=== PATIENT | male | born 1960 | race African-American/Black ===

== ENCOUNTER 2024-11-26 09:15 | Outpatient (REF) | payer MEDICARE, MEDICAID, SELFPAY ==
--- OUTSIDE RECORDS SUMMARY | 2024-11-26 12:25 | XMS_ITS | Continuity of Care Document ---
Author Organization [facility] Address [address] [place] [address] Phone Care Team Providers Care Retail Client Solutions Analyst Name Role Phone Geoff Amaro MD Unavailable Unavailable Procedures Procedure Date INITIAL HOSPITAL CARE HOSPITAL DISCHARGE DAY CRITICAL CARE FIRST HOUR ELECTROCARDIOGRAM REPORT SUBSEQUENT HOSPITAL CARE SUBSEQUENT HOSPITAL CARE SUBSEQUENT HOSPITAL CARE SUBSEQUENT HOSPITAL CARE HOSPITAL DISCHARGE DAY INITIAL HOSPITAL CARE EMERGENCY DEPT VISIT MED SERV 10PM-8AM 24 HR FAC SUBSEQUENT HOSPITAL CARE SUBSEQUENT HOSPITAL CARE SUBSEQUENT HOSPITAL CARE SUBSEQUENT HOSPITAL CARE SUBSEQUENT HOSPITAL CARE SUBSEQUENT HOSPITAL CARE HOSPITAL DISCHARGE DAY INITIAL HOSPITAL CARE EMERGENCY DEPT VISIT ELECTROCARDIOGRAM REPORT INITIAL HOSPITAL CARE SUBSEQUENT HOSPITAL CARE SUBSEQUENT HOSPITAL CARE SUBSEQUENT HOSPITAL CARE HOSPITAL DISCHARGE DAY CRITICAL CARE FIRST HOUR EMERGENCY DEPT VISIT ELECTROCARDIOGRAM REPORT EMERGENCY DEPT VISIT ELECTROCARDIOGRAM REPORT MED SERV 10PM-8AM 24 HR FAC INITIAL HOSPITAL CARE INPATIENT CONSULTATION SUBSEQUENT HOSPITAL CARE INITIAL HOSPITAL CARE EMERGENCY DEPT VISIT ELECTROCARDIOGRAM REPORT MED SERV 10PM-8AM 24 HR FAC INITIAL HOSPITAL CARE EMERGENCY DEPT VISIT MED SERV 10PM-8AM 24 HR FAC INPATIENT CONSULTATION INPATIENT CONSULTATION (shared) 016 SUBSEQUENT HOSPITAL CARE DIAGNOSTIC COLONOSCOPY UPPR GI ENDOSCOPY DIAGNOSIS Advance Directives Directive Yes / No Effective Date File Name No Information Encounters Encounter Description Practice Location Reason(s) For Visit Diagnoses Date Provider Providers Copied on Encounter INITIAL [facility], [address], [place], [place], [id number], [place] tel:[phone] [facility] In Patient No Information Prem Geoff. [address], [place], [place], [id number], [place]. tel:[phone] CRITICAL CARE FIRST HOUR [facility], [address], [place], [place], [id number], [place] tel:[phone] [facility] ER No Information Erika Winchester. [address], [place], [place], [id number], [place]. tel:[phone] Referring Provider: Ranulfo James, [address], [place], [address]. tel:[phone] SUBSEQUENT [facility], [address], [place], [place], [id number], [place] tel:[phone] [facility] In Patient No Information Huber Duran. [address], [place], [place], [id number], [place]. tel:[phone] SUBSEQUENT [facility] CARE [facility], [address], [place], [place], [id number], [place] tel:[phone] [facility] In Patient No Information Ike Sims. [address], [place], [id number], [place]. tel:[phone] INITIAL HOSPITAL CARE [facility], [address], [place], [place], [id number], [place] tel:[phone] [facility] In Patient No Information Deedee Mcconnell. [address], [place], [place], [id number], [place]. tel:[phone] EMERGENCY DEPT VISIT [facility], [address], [place], [place], [id number], [place] tel:[phone] [facility] ER No Information Erika Winchester. [address], [place], [place], [id number], [place]. tel:[phone] SUBSEQUENT HOSPITAL CARE [facility], [address], [place], [place], [id number], [place] tel:[phone] [facility] In Patient No Information Ike Sims. [address], [place], [place], [id number], [place]. tel:[phone] SUBSEQUENT HOSPITAL CARE [facility], [address], [place], [id number], [place] tel:[phone] [facility] In Patient No Information London Love. [address], [place], [place], [id number], [place]. tel:[phone] INITIAL HOSPITAL CARE [facility], [address], [place], [id number], [place] tel:[phone] [facility] In Patient No Information Deedee Mcconnell. [address], [place], [place], [id number], [place]. tel:[phone] EMERGENCY DEPT VISIT [facility], [address], [place], [id number], [place] tel:[phone] [facility] ER No Information Colby Logan. [address], [place], [place], [address], [place]. tel:[phone] Referring Provider: Desmond Bowman, [address], [place], [address]. tel:[phone] CRITICAL CARE FIRST HOUR [facility], [address], [place], [id number], [place] tel:[phone] [facility] ER No Information Erikadonna MayesRanulfo. [address], [place], [place], [id number], [place]. tel:[phone] INITIAL HOSPITAL CARE [facility], [address], [place], [id number], [place] tel:[phone] [facility] In Patient No Information Deedee Mcconnell. [address], [place], [place], [id number], [place]. tel:[phone] EMERGENCY DEPT VISIT [facility], [address], [place], [id number], [place] tel:[phone] [facility] ER No Information Colby Logan. [address], [place], [id number], [place]. tel:[phone] Referring Provider: Desmond Bowman, [address], [place], [address]. tel:[phone] EMERGENCY DEPT VISIT [facility], [address], [place], [place], [id number], [place] tel:[phone] [facility] ER No Information Colby Logan. [address], [place], [place], [id number], [place]. tel:[phone] Referring Provider: Desmond Bowman, [address], [place], [address]. tel:[phone] INITIAL HOSPITAL CARE [facility], [address], [place], [place], [id number], [place] tel:[phone] [facility] In Patient No Information Deedee Mcconnell. [address], [place], [place], [id number], [place]. tel:[phone] INPATIENT CONSULTATION [facility], [address], [place], [id number], [place] tel:[phone] [facility] In Patient No Information Angela Otto. [address], [place], [id number], [place]. tel:[phone] Referring Provider: Jayesh Gordon, [address], [place], [address]. tel:[phone] INITIAL HOSPITAL CARE [facility], [address], [place], [place], [id number], [place] tel:[phone] [facility] In Patient No Information Deedee Mcconnell. [address], [place], [place], [id number], [place]. tel:[phone] EMERGENCY DEPT VISIT [facility], [address], [place], [place], [id number], [place] tel:[phone] [facility] ER No Information Floyd Macdonald. [address], [place], [place], [id number], [place]. tel:[phone] Referring Provider: Torres Barrientos, [address], [place], [address]. tel:[phone] INITIAL HOSPITAL CARE [facility], [address], [place], [id number], [place] tel:[phone] [facility] In Patient No Information Christine Herrera. [address], [place], [place], [id number], [place]. tel:[phone] EMERGENCY DEPT VISIT [facility], [address], [place], [place], [address], [place] tel:[phone] [facility] ER No Information Dylon Rosales. [address] [facility] [place], [id number], [place]. tel:[phone] INPATIENT CONSULTATION [facility] Medical [facility], [address] [facility] [place], [id number], tel:[phone] [facility] In Patient No Information Angela Otto. [address] [place], [place], [id number], [place]. tel:[phone] Referring Provider: Javier King, [address] [place], [address]. tel:[phone] Family History Family Member Type Diagnosis Age At Onset No Information Payers Payer name Insurance type Covered libertarian ID Deborah junior(s) [facility] [employer] CI [id number] Social History Type Description Quantity Date Captured Comments Sex Male Smoking Status No Information Chief Complaint And Reason For Visit No Information Reason For Referral Reason For Referral No Information History Of Present Illness Encounter Date Complaint History Of Prese nt Illness No Information Functional Status Date Functional Assessmen t No Information Instructions Date Instruction Additional Infor mation No Information Assessments Type Assessment Date No Information Patient Care Teams Name Effective Dates (start - stop) Status Members No Information
== END 2024-11-26 09:16 | disposition home or self-care (01) ==
LOC: HO.SH 09:15
PROVIDERS: Visit Provider Nurse Practitioner Family
DX: Z01.118 Encounter for examination of ears and hearing with other abnormal findings (principal); H90.8 Mixed conductive and sensorineural hearing loss, unspecified
CPT/HCPCS: 92557; 92567; 92588

== ENCOUNTER 2025-02-11 08:23 | Outpatient (REF) | payer MEDICARE, MEDICAID, SELFPAY | END 2025-02-11 08:24 | disposition home or self-care (01) | LOC: HO.SH 08:23 | PROVIDERS: Visit Provider Nurse Practitioner Family | DX: Z01.118 Encounter for examination of ears and hearing with other abnormal findings (principal); H90.6 Mixed conductive and sensorineural hearing loss, bilateral | CPT/HCPCS: 92557; 92567 ==